=== PATIENT | female | born 1940 | race Caucasian/White ===

== ENCOUNTER 2018-06-01 19:43 | Emergency (ER) | payer MEDICARE, OTHER ==
[2018-06-01] MEDS ORDERED: Albuterol/Ipratropium 3.0-0.5 MG/3 ML Neb Soln NEB ONE (20:00)
--- NOTE | 2018-06-01 20:02 | EDM.PDOC ---
ED HPI GENERAL MEDICAL PROBLEM - General Chief Complaint: Respiratory Problem Stated Complaint: CHEST PAIN [id number] Time Seen by Provider: 06/01/18 20:01 Source of Information: Reports: Patient History Limitations: Reports: No Limitations - History of Present Illness INITIAL COMMENTS - FREE TEXT/NARRATIVE: 8 days h/o cough and now chest hurts back hurts feels out of breath. denies CP per se. Treatments UND[employer] LOAN: Reports: Other Medication(s) Mid-Sternal Chest Pain Score (Numeric/FACES): 5 - Related Data Allergies Allergy/AdvReac Type Severity Reaction Status Date / Time erythromycin base Allergy Nausea Verified 06/01/18 19:53 Penicillins Allergy Rash Verified 06/01/18 19:53 Home Meds: Home Meds . [Unable to Verify Home Med List] 06/01/18 [History] Social & Family History - Tobacco Use Smoking Status *Q: Unknown Ever Smoked Second Hand Smoke Exposure: No - Caffeine Use Caffeine Use: Reports: None - Recreational Drug Use Recreational Drug Use: No ED ROS GENERAL - Review of Systems Review Of Systems: ROS reveals no pertinent complaints other than HPI. ED EXAM, GENERAL - Physical Exam Exam: See Below Exam Limited By: No Limitations General Appearance: Alert, WD/WN, Mild Distress, Other (cough spasms) Ears: Hearing Grossly Normal Throat/Mouth: Normal Voice, No Airway Compromise Head: Atraumatic Neck: Non-Tender, Full Range of Motion Respiratory/Chest: No Accessory Muscle Use, Decreased Breath Sounds, Rhonchi, Wheezing. No: Retractions Cardiovascular: Regular Rate, Rhythm GI/Abdominal: Soft, Non-Tender Neurological: Alert, Oriented, Normal Cognition, Normal Gait, No Motor/Sensory Deficits Psychiatric: Anxious Skin Exam: Warm, Dry, Normal Color Lymphatic: No Adenopathy Course - Vital Signs Last Recorded V/S: Last Vital Signs Temp 37.3 C 06/01/18 19:50 Pulse 104 H 06/01/18 19:50 Resp 20 06/01/18 19:50 BP 170/86 H 06/01/18 19:50 Pulse Ox 95 06/01/18 19:50 - Orders/Labs/Meds Orders: Active Orders 24 hr Category Date Time Status RT Aerosol Therapy [RC] ASDIRECTED Care 06/01/18 20:00 Active Chest 2V [CR] Urgent Exams 06/01/18 20:00 Ordered Meds: Medications Discontinued Medications Generic Name Dose Route Start Last Admin Trade Name Maverickq PRN Reason Stop Dose Admin Albuterol/Ipratropium 3 ml 06/01/18 20:00 06/01/18 20:03 Duoneb 3.0-0.5 Mg/3 Ml NEB 06/01/18 20:01 3 ml ONETIME ONE Administration Azithromycin 500 mg 06/01/18 20:57 Zithromax PO 06/01/18 20:58 ONETIME ONE Methylprednisolone Sodium Succinate 125 mg 06/01/18 20:57 Solu-Medrol IM 06/01/18 20:58 ONETIME ONE Promethazine HCl/Codeine 5 ml 06/01/18 20:57 Phenergan With Codeine PO 06/01/18 20:58 ONETIME ONE - Re-Assessments/Exams Free Text/Narrative Re-Assessment/Exam: 06/01/18 21:00 s/p duoneb = better now can bring up stuff from nose and lungs Departure - Departure Time of Disposition: 21:02 Disposition: Home, Self-Care 01 Condition: Good Clinical Impression: Bronchospasm with bronchitis, acute Sinusitis Qualifiers: Sinusitis location: ethmoidal Chronicity: subacute Qualified Code(s): J01.20 - Acute ethmoidal sinusitis, unspecified - Discharge Information Instructions: Sinusitis, Adult, [id number] Forms: ED Department Discharge Additional Instructions: 1) rest 2) don't sleep flat at night 3) use neb 3 times daily as needed for cough 4) recheck if there is any change or concern rx given; z-nicol medrol dospak phenergan codeine syrup qid prn albuterol 2.5mg solution tid prn - My Orders Last 24 Hours: My Active Orders 06/01/18 20:00 RT Aerosol Therapy [RC] ASDIRECTED Chest 2V [CR] Urgent - Assessment/Plan Last 24 Hours: My Active Orders 06/01/18 20:00 RT Aerosol Therapy [RC] ASDIRECTED Chest 2V [CR] Urgent
[2018-06-01] MEDS ORDERED: Azithromycin 250 MG Tab PO ONE (20:57)
[2018-06-01] MEDS ORDERED: methylPREDNISolone Sodium Succinate 125 MG/2 ML SDV IM ONE (20:57)
[2018-06-01] MEDS ORDERED: Codeine/Promethazine 10-6.25 MG/5 ML Syrup 5 ML UD Cup PO ONE (20:57)
== END 2018-06-01 21:15 | disposition home or self-care (01) ==
LOC: DL.ED 19:43
DX: J20.9 Acute bronchitis, unspecified (principal); J01.20 Acute ethmoidal sinusitis, unspecified; Z88.1 Allergy status to other antibiotic agents; Z88.0 Allergy status to penicillin
CPT/HCPCS: 71046; 94640; 96372; 99284; A9270; J2930; 99283; J7620-GY